=== PATIENT | female | born 1995 | race Two or more races ===

== ENCOUNTER 2017-12-26 23:28 | Inpatient (IN) | payer OTHER ==
[2017-12-27 00:13] LABS: APPEARANCE,URINE SLIGHTLY-CLOUDY; BILIRUBIN,URINE NEGATIVE (NEGATIVE); COLOR,URINE YELLOW; GLUCOSE, URINE NEGATIVE (NEGATIVE); KETONES,URINE NEGATIVE (NEGATIVE); LEUKOCYTE ESTERASE,URINE NEGATIVE (NEGATIVE); NITRITE,URINE NEGATIVE (NEGATIVE); PROTEIN,URINE NEGATIVE (NEGATIVE); URINE SPECIFIC GRAVITY 1.006; UROBILINOGEN,URINE NEGATIVE mg/dL (<2.0)
[2017-12-27 00:29] LABS: URINE AMPHETAMINES SCREEN NEGATIVE; URINE BARBITURATES SCREEN NEGATIVE; URINE BENZODIAZEPINES SCREEN NEGATIVE; URINE COCAINE SCREEN NEGATIVE; URINE MARIJUANA (THC) SCREEN NEGATIVE; URINE METHADONE SCREEN NEGATIVE; URINE PHENCYCLIDINE SCREEN NEGATIVE
[2017-12-27] MEDS ORDERED: RINGERS SOLUTION,LACTATED 1,000 ML IV PRN (00:31)
[2017-12-27 00:56] LABS: ABSOLUTE BASOPHILS # (AUTO) 0.1 10^3/uL (0.0-0.2); ABSOLUTE EOSINOPHILS # (AUTO) 0.1 10^3/uL (0.0-0.6); ABSOLUTE LYMPHOCYTES (AUTO) 2.5 10^3/uL (0.5-4.7); ABSOLUTE MONOCYTES (AUTO) 0.8 10^3/uL (0.1-1.4); ABSOLUTE NEUT (AUTO) 6.8 10^3/uL (1.7-8.2); BASOPHILS % (AUTO) 0.5 % (0-2); EOSINOPHILS % (AUTO) 1.1 % (0-6); HEMATOCRIT 37.3 % (36.0-47.0); HEMOGLOBIN 12.5 g/dL (12.0-15.5); LYMPHOCYTES % (AUTO) 24.2 % (13-45); MEAN CORPUSCULAR HEMOGLOBIN 28.5 pg (27.0-33.4); MEAN CORPUSCULAR HGB CONC 33.5 g/dL (32.0-36.0); MEAN CORPUSCULAR VOLUME 85 fl (80-97); MONOCYTES % (AUTO) 7.5 % (3-13); PLATELET COUNT 275 10^3/uL (150-450); RED BLOOD COUNT 4.38 10^6/uL (3.72-5.28); RED CELL DISTRIBUTION WIDTH 14.6 % (11.5-14.0); SEGMENTED NEUTROPHILS % (AUTO) 66.7 % (42-78); TOTAL CELLS COUNTED % (AUTO) 100 %; WHITE BLOOD COUNT 10.2 10^3/uL (4.0-10.5)
[2017-12-27] MEDS ORDERED: MISOPROSTOL 0.2 MG TABLET ONE (01:33)
[2017-12-27] MEDS ORDERED: OXYTOCIN/NORMAL SALINE 20 UNIT/1,000 ML RTUINJ ONE (01:33)
[2017-12-27] MEDS ORDERED: OXYTOCIN 10 UNIT/ML VIAL ONE (01:33)
[2017-12-27] MEDS ORDERED: LIDOCAINE 1% INJ-PF (10 MG/ML) 30 ML SDV ONE (01:33)
--- NOTE | 2017-12-27 01:40 | Admission Physical ---
Datetime Report Generated by CPN: 12/27/2017 01:40 CURRENT ADMISSION Chief Complaint: Suspected Ruptured Membranes Indication for Induction- Other: SROM Admit Impression : Term, Intrauterine ; Ruptured Membranes Admit Plan: Admit to Unit; Initiate Labor Induction Protocol ALLERGIES Medication Allergies: No Medication Allergies: No Known Allergies (12/26/2017) Latex: No Latex Allergies OBSTETRICAL HISTORY EDC: 01/06/2018 00:00 : 2 Para: 0 Term: 0 : 0 SAB: 1 IAB: 0 Ectopic: 0 Livin Cesareans: 0 VBACs: 0 Multiple Births: 0 Gestational Diabetes: No Rh Sensitization: No Incompetent Cervix: No YAIAM: No Infertility: No ART Treatment: No Uterine Anomaly: No IUGR: No Hx Previous C/S: No Macrosomia: No Hx Loss/Stillborn: No PIH: No Hx : No Placenta Previa/Abruption: No Depression/PP Depression: No PTL/PROM: No Post Hemorrhage: No Current Procedures: Ultrasound Obstetrical History Comments: g1 - sab g2 - current SEE RECORDS Alcohol: No Marijuana : No Cocaine: No Other Illicit Drugs: No Cigarettes: Never Smoker. 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 Surgery: No Heart Disease: No Hosp/Surgery: Yes Autoimmune Disorder: No Anesthetic Complications: No Kidney Disease: No Abnormal Pap Smear: No Neuro/Epilepsy: No Psychiatric Disorders: No Other Medical Diseases: No Hepatitis/Liver Disease: No Significant Family History: No Varicosities/Phlebitis: No Trauma/Violence : No Thyroid Dysfunction: No Medical History Comments: tonsillectomy INFECTIOUS HISTORY Gonorrhea: No Genital Herpes: Yes Chlamydia: No Tuberculosis: No Syphilis: No Hepatitis: No HIV/AIDS Exposure: No Rash or Viral Illness: No HPV: No PHYSICAL EXAM General: Normal HEENT: Normal Neurologic: Normal Thyroid: Normal Heart: Normal Lungs: Normal Breast: Normal Back: Normal Abdomen: Normal Genitourinary Exam: Normal Extremities: Normal DTRs: Normal Pelvic Type: Adequate VAGINAL EXAM Dilatation: 1 Effacement: 0 Station: -2 MEMBRANES Pooling: Positive Membranes: Ruptured FETUS A EGA: 38.4 Monitoring: External US FHR- Baseline: 120 Variability: Marked >25bpm Decelerations: None FHR Category: Category I Presentation: Vertex PLANS FOR LABOR AND DELIVERY Pain Management: Epidural Feeding Preference: Breast Benefit of Breast Feed Discussed: Yes Circumcision: No INFORMED CONSENT Signature: with User ID: [email or web address]
[2017-12-27] MEDS ORDERED: OXYTOCIN/NORMAL SALINE 20 UNIT/1,000 ML RTUINJ IV PRN ×2 (02:09→15:46)
[2017-12-27 02:13] LABS: CHLAM PCR NOT DETECTED (NOT DETECT); GON PCR NOT DETECTED (NOT DETECT)
[2017-12-27] MEDS ORDERED: EPHEDRINE SULFATE INJ 50 MG/1 ML AMPULE ONE (07:53)
[2017-12-27] MEDS ORDERED: BUPIVACAINE HCL 0.5 % INJ/PF 30 ML SDV ONE (07:53)
[2017-12-27] MEDS ORDERED: FENTANYL/BUPIVACAINE/NS/PF 200 MCG/100 ML RTUINJ EPI ONE (07:53)
[2017-12-27] MEDS ORDERED: CEFAZOLIN 2 GM/D5W RTU 0 GM/0 ML RTUPB IV ONE (11:48)
[2017-12-27] MEDS ORDERED: AMPICILLIN SOD INJ 2 GM VIAL ONE ×2 (14:42→21:22)
[2017-12-27] MEDS ORDERED: GENTAMICIN SULFATE INJ 80 MG/2 ML VIAL IV ONE (14:45)
[2017-12-27] MEDS ORDERED: NA PHOS,M-B/NA PHOS,DI-BA (ADULT) 133 ML ENEMA PR ONE (15:12)
[2017-12-27] MEDS ORDERED: PROMETHAZINE HCL 25 MG TABLET PO PRN (15:46)
[2017-12-27] MEDS ORDERED: PSEUDOEPHEDRINE HCL 30 MG TABLET PO PRN (15:46)
[2017-12-27] MEDS ORDERED: MAGNESIUM HYDROXIDE SUSP 30 ML UDCUP PO PRN (15:46)
[2017-12-27] MEDS ORDERED: PROMETHAZINE HCL INJ 25 MG/1 ML VIAL IV PRN (15:46)
[2017-12-27] MEDS ORDERED: ACETAMINOPHEN 325 MG TABLET PO PRN (15:46)
[2017-12-27] MEDS ORDERED: ZOLPIDEM TARTRATE 5 MG TABLET PO PRN (15:46)
[2017-12-27] MEDS ORDERED: MEASLES,MUMPS&RUBELLA VACC/PF 0.5 ML VIAL SUBCUT PRN (15:46)
[2017-12-27] MEDS ORDERED: GLYCERIN/WITCH HAZEL LEAF 1 EACH MED..PAD TP PRN (15:46)
[2017-12-27] MEDS ORDERED: DIPHENHYDRAMINE HCL 25 MG CAPSULE PO PRN (15:46)
[2017-12-27] MEDS ORDERED: PROMETHAZINE HCL 25 MG SUPP.RECT PR PRN (15:46)
[2017-12-27] MEDS ORDERED: NA PHOS,M-B/NA PHOS,DI-BA (ADULT) 133 ML ENEMA PR PRN (15:46)
[2017-12-27] MEDS ORDERED: ACETAMINOPHEN WITH CODEINE #3 TABLET PO PRN (15:46)
[2017-12-27] MEDS ORDERED: DIBUCAINE 1% OINTMENT 28 GM TP PRN (15:46)
[2017-12-27] MEDS ORDERED: BENZOCAINE/MENTHOL AEROSOL SPRAY 56 ML TOP PRN (15:46)
[2017-12-27] MEDS ORDERED: MISOPROSTOL 0.2 MG TABLET PR ONE (16:45)
[2017-12-27] MEDS ORDERED: GENTAMICIN SULFATE INJ 80 MG/2 ML VIAL ONE ×2 (17:21→17:32)
[2017-12-27] MEDS ORDERED: IBUPROFEN 800 MG TABLET ONE (18:30)
--- NOTE | 2017-12-27 19:12 | Delivery Summary ---
Del Sum A-C Datetime Report Generated by CPN: 12/27/2017 19:12 DELIVERY PERSONNEL DELIVERY PERSONNEL: [id number] Delivery Doctor:: Conchita Arcos MD Labor and Delivery Nurse:: Denia Humphreys RNspice fumigator Nurse:: Kristen Hammonds RN Nursery Nurse:: Polly Sandhu RN Electric Welder Helper/EXTRACTIONS TECHNOLOGIST: ST Saranya Electric Welder Helper/EXTRACTIONS TECHNOLOGIST: Falguni Pascual, MANGLE CATCHER MATERNAL INFORMATION Delivery Anesthesia: Epidural Medications After Delivery: Pitocin Bolus-Please Comment; Pitocin Drip 20 Units/1000ml NSS; Cytotec 1000mcg Per Rectum/Vagina Meds After Delivery Comment: Pitocin 20 units in 1 L NS bolusing per order, Cytotec 1000 mcg PA Maternal Complications: Premature Rupture of Membranes Provider Comments: VMI delivered in [place] presentation. No nuchal cord. Shoulders and body delivered without difficulty. Cord doubly clamped and cut and to maternal abdomen. Placenta delivered intact spontaneously. Mild atony resolved with cytotec and pitocin after delivery of placenta. Mother and baby stable upon provider leaving the room. FF at U. Good hemostasis after repair of 1st degree perineal laceration. LABOR SUMMARY EDC: 01/06/2018 00:00 No. Babies in Womb: 1 Attempted: No Labor Anesthesia: Epidural LABOR INFORMATION Reason for Induction: Not Applicable; Premature Rupture of Membranes Complete Dilatation: 12/27/2017 15:37 Oxytocin: Augmentation Group B Beta Strep: negative Antibiotics # of Doses: 1 Antibiotics Time of Last Dose: 1528 Name of Antibiotic Given: ampicillin Steroids Given: None Reason Steroids Not Administered: Not Applicable MEMBRANES Membranes Rupture Method: Spontaneous Rupture of Membranes: 12/26/2017 18:00 Length of Rupture (hr): 22.47 Amniotic Fluid Color: Clear Amniotic Fluid Amount: Small Amniotic Fluid Odor: Normal STAGES OF LABOR Stage 2 hr: 0 Stage 2 min: 51 Stage 3 hr: 0 Stage 3 min: 2 VAGINAL DELIVERY Episiotomy: None Laceration #1: Perineal Laceration Extension #1: First Degree Laceration Repair: Yes Laceration Repair Note: repaired in usual fashion Sponge Count Correct: N/A Sharps Count Correct: N/A CSECTION DELIVERY Primary Indication: N/A Secondary Indication: N/A CSection Incidence: N/A Labor: N/A Elective: N/A CSection Incision: N/A BABY A INFORMATION Infant Delivery Date/Time: 12/27/2017 16:28 Method of Delivery: Vaginal Born in Route : No : N/A Forceps: N/A Vacuum Extraction: N/A Shoulder Dystocia : No PRESENTATION/POSITION BABY A Presentation: Cephalic Cephalic Presentation: Vertex Vertex Position: Right Occipital Anterior Breech Presentation: N/A PLACENTA INFORMATION BABY A Placenta Delivery Time : 12/27/2017 16:30 Placenta Method of Delivery: Spontaneous Placenta Status: Delivered SCORES BABY A Heart Rate 1 min: >100 bpm Resp Effort 1 min: Good Cry Reflex Irritability 1 min: Cough or Sneeze or Pulls Away Muscle Tone 1 min: Active Motion Color 1 min: Blue/Pale SCORE 1 MIN: 8 Heart Rate 5 min: >100 bpm Resp Effort 5 min: Good Cry Reflex Irritability 5 min: Cough or Sneeze or Pulls Away Muscle Tone 5 min: Active Motion Color 5 min: Body Imperial, Extremities Blue SCORE 5 MIN: 9 INFANT INFORMATION BABY A Gestational Age at Delivery: 38.4 Gestational Status: Early Term- 37- 38.6 Weeks Outcome : Liveborn Condition : Stable Sex: Male IDENTIFICATION BABY A Verification Date/Time: 12/27/2017 17:09 ID Band Number: [id number] Mother's Name Verified: Yes Infant RN Verifying Infant: Camelia Humphreys, RN, JCiara Schaffer, RN WEIGHT/LENGTH BABY A Infant Birthweight (gm): 2750 Weight (lb): 6 Infant Weight (oz): 1 Infant Length (in): 18.50 Length (cm): 46.99 CORD INFORMATION BABY A No. Cord Vessels: 3 Nuchal Cord : N/A Cord Blood Taken: Yes-For Eval (Mom's Blood Type - or O+) Infant Suction: None ASSESSMENT BABY A Infant Complications: Multiple Late Decels; Multiple Variable Decels Physical Findings at Delivery: Within Normal Limits Respirations: Appears Normal Skin to Skin: Yes Fox Farmer/ALS Called : No Transferred To: Remains with Mother BABY B INFORMATION : N/A SIGNATURES Signature: with User ID: [email or web address]
[2017-12-27] MEDS ORDERED: AMPICILLIN SOD INJ 2 GM VIAL IM SCH (21:00)
[2017-12-27] MEDS: IBUPROFEN 800 MG TABLET PO SCH (21:10)
[2017-12-27] MEDS: ACETAMINOPHEN WITH CODEINE #3 TABLET PO PRN (21:31)
[2017-12-27] MEDS: FAMOTIDINE 20 MG TABLET PO SCH (22:09)
[2017-12-27] MEDS ORDERED: GENTAMICIN SULFATE INJ 80 MG/2 ML VIAL IV SCH (23:00)
[2017-12-27] MEDS ORDERED: AMPICILLIN SOD INJ 2 GM VIAL IV PRN (23:46)
[2017-12-28] MEDS ORDERED: AMPICILLIN SOD INJ 2 GM VIAL IV SCH
[2017-12-28] MEDS ORDERED: GENTAMICIN SULFATE INJ 80 MG/2 ML VIAL ONE (01:37)
[2017-12-28] MEDS ORDERED: GENTAMICIN SULFATE 140 MG in DEXTROSE 5%-WATER 100 ML IV SCH (02:00)
[2017-12-28] MEDS ORDERED: AMPICILLIN SOD INJ 2 GM VIAL ONE (03:55)
[2017-12-28] MEDS: AMPICILLIN SODIUM 2 GM in NORMAL SALINE 100 ML IV SCH (04:05)
[2017-12-28] MEDS: IBUPROFEN 800 MG TABLET PO SCH ×3 (05:38→21:42)
[2017-12-28] MEDS: ACETAMINOPHEN WITH CODEINE #3 TABLET PO PRN (05:42)
[2017-12-28 08:11] LABS: HEMATOCRIT 31.1 % (36.0-47.0); MEAN CORPUSCULAR HEMOGLOBIN 28.3 pg (27.0-33.4); MEAN CORPUSCULAR HGB CONC 33.3 g/dL (32.0-36.0); MEAN CORPUSCULAR VOLUME 85 fl (80-97); PLATELET COUNT 236 10^3/uL (150-450); RED BLOOD COUNT 3.66 10^6/uL (3.72-5.28); RED CELL DISTRIBUTION WIDTH 14.5 % (11.5-14.0); WHITE BLOOD COUNT 13.6 10^3/uL (4.0-10.5)
[2017-12-28 08:19] LABS: HEMOGLOBIN 10.4 g/dL (12.0-15.5)
[2017-12-28] MEDS: PRENATAL VITAMIN W DHA CAPSULE PO SCH (09:07)
[2017-12-28] MEDS: DOCUSATE SODIUM 100 MG CAPSULE PO SCH ×2 (09:08→17:50)
[2017-12-28] MEDS: FERROUS SULFATE 325 MG TABLET PO SCH ×2 (09:08→17:50)
--- NOTE | 2017-12-28 09:53 | PDOC PROGRESS REPORT ---
Subjective-OB Progress Note for:: 12/28/17 Subjective: PP Day#2, doing well, breast/ bottlefeeding, has been on Amp/Gent due to maternal temp in labor. No complaints this morning, denies fever, chills , malaise Physical Exam (OB) Vital Signs: Temp Pulse Resp BP Pulse Ox 97.8 F 63 16 111/55 L 96 12/28/17 08:19 12/28/17 08:19 12/28/17 08:19 12/28/17 08:19 12/28/17 08:19 Intake & Output 12/27/17 12/28/17 12/29/17 06:59 06:59 06:59 Intake Total 1743 Balance 1743 Weight 90.3 kg - General General Appearance: Appears well, Alert In distress: None - PIH/Pre-Eclampsia DTR's: 1 + Clonus: Negative Headache: Absent Epigastric Pain: No Visual Changes: No - Episiotomy/Laceration Site Condition: Well Approximated - Lochia Lochia Amount: Scant < 10 ml Lochia Color: Rubra/Red - Abdomen Description: Tender Hernia Present: No Fundal Description: Firm Fundal Height: u/3 - u/4 - Respiratory Respiratory Status: No respiratory distress - Cardiovascular Rhythm: Regular - Abdominal Distension: No distension Tenderness: Nontender - Genitourinary Genitourinary Note: voiding - Extremities Upper extremity: Normal inspection Lower extremities: Normal inspection - Neurological Cognition: Normal Orientation: AAOx4 - Psychological Associated symptoms: Normal affect, Normal mood Objective-Diagnostic Laboratory: 12/28/17 07:33 12/28/17 07:33 WBC 13.6 H RBC 3.66 L Hgb 10.4 L D Hct 31.1 L MCV 85 MCH 28.3 MCHC 33.3 RDW 14.5 H Plt Count 236 Assessment and Plan(PN) - Assessment and Plan (1) Chorioamnionitis, delivered, current hospitalization Is this a current diagnosis for this admission?: Yes (2) Obstetrical laceration, first degree Is this a current diagnosis for this admission?: Yes (3) Premature rupture of membranes Qualifiers: PROM gestational age: full term Is this a current diagnosis for this admission?: Yes (4) Vaginal delivery Is this a current diagnosis for this admission?: Yes - Time Spent with Patient Time with patient: Less than 15 minutes Medications reviewed and adjusted accordingly: Yes - plan to d/c antibiotic therapy this afternoon at 24 hours post delivery - Disposition Anticipated Discharge: Home Within: within 24 hours
[2017-12-28] MEDS: FAMOTIDINE 20 MG TABLET PO SCH ×2 (10:19→21:42)
[2017-12-28] MEDS: SENNOSIDES/DOCUSATE 8.6-50 MG 1 EACH TABLET PO SCH (10:19)
[2017-12-28] MEDS ORDERED: GENTAMICIN SULFATE 140 MG in DEXTROSE 5%-WATER 100 ML IV ONE (13:00)
[2017-12-28 19:57] VITALS: BP 106/46
[2017-12-29] MEDS: IBUPROFEN 800 MG TABLET PO SCH ×2 (05:16→14:06)
--- NOTE | 2017-12-29 09:58 | PDOC DISCHARGE SUMMARY ---
Final Diagnosis Discharge Date: 12/29/17 - Final Diagnosis (1) Chorioamnionitis, delivered, current hospitalization Is this a current diagnosis for this admission?: Yes (2) Obstetrical laceration, first degree Is this a current diagnosis for this admission?: Yes (3) Premature rupture of membranes Is this a current diagnosis for this admission?: Yes (4) Vaginal delivery Is this a current diagnosis for this admission?: Yes Discharge Data - Discharge Medication Home Medications: Pnv 102/Iron/Folate 1/Dss/Dha [Vitafol Fe+ Docusate Combo Pck] 1 cap PO DAILY Reason(s) for Admission: PROM Procedures: None Intrapartum Procedure(s): Spontaneous Vaginal Delivery Complication(s): Laceration-Perineal Laceration-Degree: 1st - Diagnosis Test Laboratory: Temp Pulse Resp BP Pulse Ox 98.0 F 58 L 16 106/46 L 97 12/28/17 19:36 12/28/17 19:36 12/28/17 19:36 12/28/17 19:36 12/28/17 19:36 12/26/17 12/27/17 12/28/17 23:50 00:45 07:33 RBC 4.38 3.66 L Hgb 12.5 10.4 L D Hct 37.3 31.1 L Urine Opiates Screen NEGATIVE - Discharge information/Instructions Discharge Activity: Balance Activity w/Rest, Pelvic Rest Discharge Diet: Regular Disposition: HOME, SELF-CARE Follow up with: [facility] in: 3, Weeks
[2017-12-29] MEDS: FAMOTIDINE 20 MG TABLET PO SCH (10:56)
[2017-12-29] MEDS: DOCUSATE SODIUM 100 MG CAPSULE PO SCH ×2 (10:56→11:26)
[2017-12-29] MEDS: FERROUS SULFATE 325 MG TABLET PO SCH (10:56)
[2017-12-29] MEDS: PRENATAL VITAMIN W DHA CAPSULE PO SCH (10:56)
[2017-12-29] MEDS: SENNOSIDES/DOCUSATE 8.6-50 MG 1 EACH TABLET PO SCH (10:56)
[2017-12-29] MEDS: AMPICILLIN SODIUM 2 GM in NORMAL SALINE 100 ML IV SCH (11:30)
== END 2017-12-29 14:52 | disposition home or self-care (01) | DRG 775 ==
LOC: LC 23:28 → LR 12-27 00:38 → 2S 12-27 20:10
PROVIDERS: ADMIT Student in an Organized Health Care Education/Training Program; ATTEND Student in an Organized Health Care Education/Training Program
PROC: 10E0XZZ Delivery of Products of Conception, External Approach (ICD-10-PCS; principal; 2017-12-27)
PROC: 0HQ9XZZ Repair Perineum Skin, External Approach (ICD-10-PCS; 2017-12-27)
DX: O42.02 Full-term premature rupture of membranes, onset of labor within 24 hours of rupture (principal); O41.1230 Chorioamnionitis, third trimester, not applicable or unspecified; O70.0 First degree perineal laceration during delivery; O76 Abnormality in fetal heart rate and rhythm complicating labor and delivery; Z3A.38 38 weeks gestation of pregnancy; Z37.0 Single live birth
CPT/HCPCS: 36415; 80307; 81005; 84112; 85025; 85027; 86592; 86850; 86900; 86901; 87491; 87591; 94760; J0290; J0690; J1580; J2590; J3490